=== PATIENT | female | born 1975 | race Caucasian/White ===

== ENCOUNTER 2017-11-27 22:30 | Inpatient (IN) | payer BC ==
[2017-11-28] MEDS ORDERED: NA CHLORIDE 0.9% 1,000 ML IV SCH ×2 (01:00→11:00)
[2017-11-28] MEDS ORDERED: CEFOXITIN SODIUM 2 GM/VIAL ONE (01:11)
[2017-11-28] MEDS ORDERED: NA CHLORIDE 0.9% 100 ML ONE ×2 (01:17→04:48)
[2017-11-28] MEDS: CEFOXITIN SODIUM 1 GM/VIAL IVPB SCH ×2 (01:24→05:27)
[2017-11-28] MEDS ORDERED: CEFOXITIN/SWI 1gm 1 GM/10 ML SYR IV SCH (08:30)
[2017-11-28] MEDS ORDERED: BUPIVACAINE 0.5% PF 10 ML VIAL ONE (09:21)
[2017-11-28] MEDS: Ringers Lactate 1,000 ML IV ONE (09:27)
[2017-11-28] MEDS ORDERED: PROPOFOL 200 MG/20 ML VIAL IV ONE (09:41)
[2017-11-28] MEDS ORDERED: MIDAZOLAM HCL 2 MG/2 ML INJ ONE (09:41)
[2017-11-28] MEDS ORDERED: LIDOCAINE 2% MPF 5 ML VIAL ONE (09:42)
[2017-11-28] MEDS ORDERED: GLYCOPYRROLATE 0.2 MG/ML SYR ONE (09:42)
[2017-11-28] MEDS ORDERED: ROCURONIUM 50 MG/5 ML VIAL IV ONE (09:43)
[2017-11-28] MEDS ORDERED: FENTANYL CITR 250 MCG/5 ML ONE (09:43)
--- NOTE | 2017-11-28 10:40 | P.BOP ---
Preoperative diagnosis: Acute cholecystitis, symptomatic cholelithiasis Postoperative diagnosis: same Primary procedure: Laparoscopic cholecystectomy Estimated blood loss: <10cc Specimen: gb Findings: as above Anesthesia: General Complications: None Transferred to: Recovery Room Condition: Good
[2017-11-28] MEDS ORDERED: ONDANSETRON 4 MG/2 ML VIAL IV PRN (11:00)
[2017-11-28] MEDS ORDERED: MORPHINE 4 MG/ML SYR IV PRN (11:00)
[2017-11-28] MEDS ORDERED: Ringers Lactate 1,000 ML IV ONE (11:12)
[2017-11-28] MEDS: MEPERIDINE HCL 25 MG/0.5 ML ONE ×2 (11:15→11:20)
[2017-11-28] MEDS ORDERED: CEFOXITIN 1 GM in NA CHLORIDE 0.9% 100 ML IVPB SCH (12:00)
[2017-11-28] MEDS: CEFOXITIN/SWI 1gm 1 GM/10 ML SYR IV SCH ×2 (12:00→18:00)
--- NOTE | 2017-11-28 12:36 | HP ---
Date of Admission: 11/27/2017 Diagnoses: Acute cholecystitis, symptomatic cholelithiasis. History Of Present Illness: This is the case of a 42-year-old patient, with at least 3 days' history of epigastric right upper quadrant pain radiating to the back associated with nausea and bloating. The patient has been trying to improve her diet, but did not get better, so she went to [place] [facility] and since the pain was intractable, we were called for transfer to this institution for above diagnoses. The patient denies any dysuria, hematuria, hematochezia, or melena. Denies any recent traveling out of the country. Denies any family member sick at home. Review of Systems: Constitutional: Denies any fevers, chills. Respiratory: Denies any shortness of breath. Gastrointestinal: As above. Genitourinary: Denies any dysuria, hematuria. Past Medical History: None. Allergies: NONE. Social History: She does not smoke. She does not drink alcohol. Family History: Noncontributory. Past Surgical History: . Physical Examination: General: The patient is awake and alert. HEENT: Pupils are equal and reactive, anicteric. Neck: Supple. Chest: Clear. abdomen: epigastric right upper quadrant pain with Amor sign positive. The rest of the abdomen is Soft and depressible. Breasts: Deferred pelvic: Deferred Rectal: Deferred. Extremities: Good capillary refill. Cranial nerves 2 through 12 grossly within normal limits.. Reported ultrasound and CT scan done in [place] shows acute cholecystitis, symptomatic cholelithiasis w ith a pericholecystic fluid and sludge. Laboratory Data: Blood work reviewed including LFTs. Assessment And Plan: This is a 42-year-old patient with symptomatic cholelithiasis, acute cholecysti tis, intractable pain, Amor sign positive. The benefits, alternatives, and risks fully explained t o the patient, laparoscopic possible open cholecystectomy, which include, but not limited to infectio n, bleeding, damage to adjacent structures, anesthesia complication, choledocholithiasis, bile leak, pancreatitis, [place], and even . She also understands this may not relieve any symptoms. She might need more than one surgical intervention. She will sign a consent. PATEL/ANGELA Voice ID: [id number]
[2017-11-28] MEDS: HYDROCODONE/APAP 7.5/325 MG TAB PO PRN ×2 (13:40→17:49)
--- NOTE | 2017-11-28 19:54 | OP ---
Date of Procedure: 11/28/2017 Surgeon: Krishan Varela MD Superintendent Construction: None. Preoperative Diagnoses: Acute cholecystitis, symptomatic cholelithiasis. Postoperative Diagnoses: Acute cholecystitis, symptomatic cholelithiasis. Procedure: Laparoscopic cholecystectomy. Anesthesia: General plus local. Indications: This is a case of a 42-year-old patient, got emergently to the hospital with intractabl e abdominal pain, diagnosed with acute cholecystitis, symptomatic cholelithiasis. Fully explained th e benefits, alternatives, and risks of laparoscopic, possible open cholecystectomy, which include, bu t are not limited to infection, bleeding, damage to adjacent structures anesthesia complication, chol edocholithiasis, bile leak, pancreatitis, [place], and even . She also understands this may not reli elisa any symptoms. She might need more than one surgical intervention. She understood. Signed a con sent. Description Of Procedure: The patient was brought to the operating room, placed in supine position. Anesthesia was done without complication. Abdominal area was prepped and draped in sterile fashion. Marcaine 0.5% injected for local anesthetic, followed by sharp incision of the skin in the infraumb ilical region. Incision was carried down to fascia, which was opened under direct vision. Peritoneu m was encountered, opened under direct vision. Vicryl #1 placed inside the fascia. Parmjit trocar wa s carefully introduced. No bleeding was obtained. I placed 3 more trocars, 5 mm each one of them in the right upper quadrant under direct visualization. This allowed me to visualize the area of the g allbladder, which shows edematous gallbladder wall. Grasper placed in the fundus of the gallbladder, another grasper in the infundibulum. The gallbladder was retracted in the inferolateral fashion exp osing the triangle of Calot and obtaining critical view of safety. Cystic duct and cystic artery wer e clearly isolated free circumferentially, and a connection between those and the gallbladder was kartik amando identified. I proceeded to ligate those by using at least 3 clips proximal, 1 clip distal, liga tion in middle. Same was done with cystic artery. No bile leak. No bleeding. The gallbladder was removed from liver using Bovie cauterizer and removed from abdominal cavity using an EndoCatch throug h the umbilical incision. The area was inspected once again. No bile leak. No bleeding. Gallbladd er fossa was intact. At that moment, I proceeded to remove the trocars under direct vision. Deflate d the pneumoperitoneum, closed the fascia with #1 Vicryl. Irrigated subcutaneous tissue, closed that with her chromic, and skin in a subcuticular fashion with 3-0 chromic and Steri-Strips on top. Spon ge count and instrument counts were correct. The patient tolerated the procedure well. The patient was sent to recovery in stable condition. If the patient tolerates diet today, then she will be able to go home and also if she is able to tolerate pain medications by mouth. Diagnoses: Acute cholecystitis, symptomatic cholelithiasis. Procedure: Laparoscopic cholecystectomy. Disposition: Home. Activity: As tolerated. No heavy lifting. Followup: Follow up in my office in 1 week. Call for appointment [phone]. Keep area dry for 48 ho urs, then may shower. Keep Steri-Strips intact. Medication: Will include Cipro 500 p.o. q.12 and Tylenol No.3 q.4 hours p.r.n. pain. JANAE Voice ID: [id number] Report ID: [id number]
== END 2017-11-28 20:15 | disposition home or self-care (01) | DRG 419 ==
LOC: 2ND 22:30
PROVIDERS: ADMIT Surgery; ATTEND Surgery
PROC: 0FT44ZZ Resection of Gallbladder, Percutaneous Endoscopic Approach (ICD-10-PCS; principal; 2017-11-27)
DX: K80.00 Calculus of gallbladder with acute cholecystitis without obstruction (principal); Z88.2 Allergy status to sulfonamides; Z87.891 Personal history of nicotine dependence
CPT/HCPCS: 88304; J0694; J2175; J2250; J7030

== ENCOUNTER 2017-12-07 07:23 | Emergency (ER) | payer BC ==
[2017-12-07] MEDS ORDERED: ONDANSETRON 4 MG/2 ML VIAL ONE ×2 (07:42→09:30)
[2017-12-07] MEDS ORDERED: NA CHLORIDE 0.9% 1,000 ML ONE (07:42)
[2017-12-07] MEDS ORDERED: MEPERIDINE HCL 25 MG/0.5 ML ONE ×2 (07:42→09:30)
[2017-12-07 07:55] LABS: Absolute Lymphocytes (CBC) 1.4 K/uL (0.7-4.9); Absolute Monocytes 0.6 K/uL (0.1-1.3); Absolute Neutrophil 3.9 K/uL (1.8-8.0); Basophils % 0.7 % (0-1.3); Eosinophils % 1.6 % (0-4.4); Hematocrit 38.3 % (36.0-45.0); Lymphocytes % 22.8 % (15.3-44.8); MCH 28.9 pg (27.0-35.0); MCV 87.1 fL (80-100); MPV 9.7 fL (7.6-11.3); Monocytes % 10.1 % (3.3-12.3)
[2017-12-07 08:13] LABS: Bilirubin Direct 0.1 mg/dL (0-0.2); Bilirubin Total 0.4 mg/dL (0.2-1.0); Potassium 3.3 mmol/L (3.5-5.1); Protein, Total 8.2 g/dL (6.4-8.2)
[2017-12-07 08:25] LABS: Urine Blood NEGATIVE (NEG); Urine Glucose NEGATIVE (NEG); Urine Protein TRACE (NEG); Urine Specific Gravity >1.030 (1.005-1.030); Urine pH 6.5 (5.0-7.0)
[2017-12-07 08:30] LABS: Urine Amorphous Sediment 3+ /HPF (NONE SEEN); Urine Bacteria <20 /HPF (<20); Urine RBC NONE SEEN /HPF (NONE SEEN)
[2017-12-07 08:31] LABS: Urine Culture Reflex Order NOT NEEDED
--- NOTE | 2017-12-07 09:04 | RAD REPORT ---
EXAM DESCRIPTION: CT - Abdomen Pelvis W Contrast - 12/07/2017 8:33 am CLINICAL HISTORY: Abdominal pain with vomiting. Cholecystectomy 1 week ago COMPARISON: none. TECHNIQUE: Computed axial tomography of the abdomen pelvis was obtained. 100 cc Isovue-300 was admin istered intravenously. Oral contrast was not requested which limits evaluation of bowel. All CT scans are performed using dose optimization technique as appropriate and may include automated exposure control or mA/KV adjustment according to patient size. FINDINGS: The gallbladder has been removed. A 3 x 0.5 centimeter fluid collection within the gallbla dder fossa is present. The liver has a diminished attenuation consistent with fatty infiltration. Spleen, pancreas, adrenal and kidneys appear unremarkable. There is no evidence of diverticulitis. The appendix is normal. An adnexal mass is not seen. A puncta te calcification within the left ovary is noted. A small hiatal hernia is present IMPRESSION: Cholecystectomy. A 3 x 0.5 centimeter fluid collection within the gallbladder fossa is n onspecific. Most likely is not significant. If the patient's symptoms do not resolve then a follow-up right upper quadrant ultrasound in a few days would be recommended for re-evaluation
--- NOTE | 2017-12-07 09:53 | ER ---
Nurse's Notes [facility] Name: Talya Davenport Age: 42 yrs Sex: Female : 1975 Arrival Date: 12/07/2017 Time: 07:27 Bed 5 Private MD: Paco Last Diagnosis: Unspecified abdominal pain;Vomiting Presentation: 12/07 07:33 Presenting complaint: Patient states: I had gallbladder surgery a week ago, this tw2 morning i felt like i need to have a BM, but i never had one and my stomach started hurting really bad and now i have been nauseous and throwing up. Transition of care: patient was not received from another setting of care. Onset of symptoms was December 07, 2017. Risk Assessment: Do you want to hurt yourself or someone else? Patient reports no desire to harm self or others. Initial Sepsis Screen: Does the patient meet any 2 criteria? No. Patient's initial sepsis screen is negative. Does the patient have a suspected source of infection? No. Patient's initial sepsis screen is negative. Care prior to arrival: None. 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 tw2 Historical: - Allergies: 07:36 Sulfa (Sulfonamide Antibiotics); tw2 - PSHx: 07:36 ; Tubal ligation; Cholecystectomy; tw2 - Immunization history:: Adult Immunizations up to date. - Social history:: Smoking status: Patient/guardian denies using tobacco. - Ebola Screening: : Patient denies travel to an Ebola-affected area in the 21 days before illness onset. - Family history:: not pertinent. - Hospitalizations: : The patient was recently seen at [facility]. Screenin:37 Abuse screen: Denies threats or abuse. Nutritional screening: No deficits noted. tw2 Tuberculosis screening: No symptoms or risk factors identified. Fall Risk None identified. Assessment: 07:36 General: Appears uncomfortable, Behavior is appropriate for age. Pain: Complains of tw2 pain in abdomen. Neuro: Level of Consciousness is awake, alert, obeys commands, Oriented to person, place, time, situation. Cardiovascular: Denies chest pain, shortness of breath, Heart tones S1 S2 Capillary refill < 3 seconds Patient's skin is warm and dry. Respiratory: Airway is patent Respiratory effort is even, unlabored, Respiratory pattern is regular, symmetrical, Breath sounds are clear bilaterally. GI: Abdomen is flat, non-distended, Bowel sounds present X 4 quads. Abd is soft X 4 quads Reports lower abdominal pain, upper abdominal pain, nausea, vomiting. : No signs and/or symptoms were reported regarding the genitourinary system. EENT: No signs and/or symptoms were reported regarding the EENT system. Derm: No signs and/or symptoms reported regarding the dermatologic system. Musculoskeletal: Range of motion: intact in all extremities. 08:40 Reassessment: Patient appears in no apparent distress at this time. Patient and/or tw2 family updated on plan of care and expected duration. Pain level reassessed. Patient is alert, oriented x 3, equal unlabored respirations, skin warm/dry/pink. 10:09 Reassessment: Patient appears in no apparent distress at this time. Patient and/or tw2 family updated on plan of care and expected duration. Pain level reassessed. Patient is alert, oriented x 3, equal unlabored respirations, skin warm/dry/pink. Patient states feeling better. Patient states symptoms have improved. Vital Signs: 07:34 BP 150 / 96; Pulse 99; Resp 17; Pulse Ox 98% on R/A; Pain 8/10; tw2 07:49 Temp 97.6(TE); hb 08:40 BP 137 / 80; Pulse 72; Resp 18; Pulse Ox 99% on R/A; tw2 09:38 BP 150 / 96; Pulse 65; Resp 17; Pulse Ox 99% on R/A; tw2 ED Course: 07:27 Patient arrived in ED. mr 07:27 Paco Last MD is Private Physician. mr 07:29 Sean López MD is Attending Physician. rn 07:33 Leanna Momin RN is Primary Nurse. tw2 07:34 Triage completed. tw2 07:34 Arm band placed on. tw2 07:34 Bed in low position. Call light in reach. Adult w/ patient. Pulse ox on. NIBP on. tw2 07:35 No provider procedures requiring assistance completed. Inserted saline lock: 20 gauge tw2 in right antecubital area, using aseptic technique. ,using aseptic technique. per DALI Gillis Blood collected. 07:49 Radiology exam delayed due to lab results not completed at this time. (BUN/Creatinine). vr 08:08 Radiology exam delayed due to lab results not completed at this time. (BUN/Creatinine). vr 08:[address] via wheelchair. vr 08:34 CT Abd/Pelvis - W/Contrast In Process Unspecified. EDMS 09:47 EKG done, by lead slot technician. reviewed by Sean López MD. tc 10:10 IV discontinued, intact, bleeding controlled, No redness/swelling at site. Pressure tw2 dressing applied. Administered Medications: 07:45 Drug: Zofran 4 mg Route: IVP; Site: right antecubital; hb 08:15 Follow up: Response: No adverse reaction hb 07:46 Drug: Demerol 25 mg Route: IVP; Site: right antecubital; hb 08:20 Follow up: Response: No adverse reaction hb 07:46 Drug: NS 0.9% 1000 ml Route: IV; Rate: 1000 ml; Site: right antecubital; hb 10:00 Follow up: Response: No adverse reaction; IV Status: Completed infusion; IV Intake: tw2 1000ml 09:29 Drug: Demerol 25 mg Route: IVP; Site: right antecubital; hb 09:52 Follow up: Response: No adverse reaction hb 09:29 Drug: Zofran 4 mg Route: IVP; Site: right antecubital; hb 09:52 Follow up: Response: No adverse reaction hb Intake: 10:00 IV: 1000ml; Total: 1000ml. tw2 Outcome: 09:53 Discharge ordered by . rn 10:09 Discharged to home ambulatory, with family. tw2 10:09 Condition: stable 10:09 Discharge instructions given to patient, family, Instructed on discharge instructions, follow up and referral plans. medication usage, Demonstrated understanding of instructions, follow-up care, medications, Prescriptions given X 1. 10:10 Patient left the ED. tw2 Signatures: Dispatcher [employer] EDOR Tia Aguero Roman, MD MD rn Davis, Victoria vr Callis, Tiffany, dry chain offbearer EKG Elis Lewis RN RN hb Wise, Tara, RN RN tw2 Corrections: (The following items were deleted from the chart) 08:41 08:40 BP 137 / 80; Pulse 118bpm; Resp 18bpm; Pulse Ox 99% RA; tw2 tw2
--- NOTE | 2017-12-07 09:53 | EDPHYS ---
Physician Documentation [facility] Name: Talya Davenport Age: 42 yrs Sex: Female : 1975 Arrival Date: 12/07/2017 Time: 07:27 Bed 5 Private MD: Paco Last ED Physician Sean López HPI: 12/07 07:52 This 42 yrs old Female presents to ER via Wheelchair with complaints of rn Abdominal Pain, Vomiting. 07:52 The patient presents to the emergency department with nausea, vomiting, abdominal pain. rn Onset: The symptoms/episode began/occurred this morning. Possible causes: unknown. The symptoms are aggravated by nothing. The symptoms are alleviated by nothing. Severity of symptoms: At their worst the symptoms were moderate in the emergency department the symptoms have improved. The patient has not experienced similar symptoms in the past. Reports abd pain and vomiting that began today, right sided abd pain, had laparoscopic cholecystectomy 1.5 weeks ago, no complications, having normal bowel movements since then. Reports feels like "gas pain". 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 tw2 Historical: - Allergies: 07:36 Sulfa (Sulfonamide Antibiotics); tw2 - PSHx: 07:36 ; Tubal ligation; Cholecystectomy; tw2 - Immunization history:: Adult Immunizations up to date. - Social history:: Smoking status: Patient/guardian denies using tobacco. - Ebola Screening: : Patient denies travel to an Ebola-affected area in the 21 days before illness onset. - Family history:: not pertinent. - Hospitalizations: : The patient was recently seen at [facility]. ROS: 07:52 Constitutional: Negative for fever, chills, and weight loss, Eyes: Negative for injury, rn pain, redness, and discharge, Neck: Negative for injury, pain, and swelling, Cardiovascular: Negative for chest pain, palpitations, and edema, Respiratory: Negative for shortness of breath, cough, wheezing, and pleuritic chest pain, Abdomen/GI: + abd pain and vomiting Back: Negative for injury and pain, MS/Extremity: Negative for injury and deformity, Skin: Negative for injury, rash, and discoloration, Neuro: Negative for headache, weakness, numbness, tingling, and seizure. Exam: 07:52 Constitutional: This is a well developed, well nourished patient who is awake, alert, rn hunched over and vomiting, holding emesis bag Head/Face: Normocephalic, atraumatic. Eyes: Pupils equal round and reactive to light, extra-ocular motions intact. Cardiovascular: Regular rate and rhythm with a normal S1 and S2. No gallops, murmurs, or rubs. Normal PMI, no JVD. No pulse deficits. Respiratory: Lungs have equal breath sounds bilaterally, clear to auscultation and percussion. No rales, rhonchi or wheezes noted. No increased work of breathing, no retractions or nasal flaring. Abdomen/GI: soft, + right mid abd tenderness, no rebound/guarding, no masses Skin: Warm, dry with normal turgor. Normal color with no rashes, no lesions, and no evidence of cellulitis. Neuro: Awake and alert, GCS 15 Vital Signs: 07:34 BP 150 / 96; Pulse 99; Resp 17; Pulse Ox 98% on R/A; Pain 8/10; tw2 07:49 Temp 97.6(TE); hb 08:40 BP 137 / 80; Pulse 72; Resp 18; Pulse Ox 99% on R/A; tw2 09:38 BP 150 / 96; Pulse 65; Resp 17; Pulse Ox 99% on R/A; tw2 MDM: 07:29 Patient medically screened. rn 09:49 Differential diagnosis: Nonspecific abd pain, gastritis, viral gastroenteritis, rn gastroenteritis, gas, spasm, constipation, bile leak, abscess. Data reviewed: vital signs, nurses notes, lab test result(s), radiologic studies, CT scan, and as a result, I will discharge patient. Counseling: I had a detailed discussion with the patient and/or guardian regarding: the historical points, exam findings, and any diagnostic results supporting the discharge/admit diagnosis, lab results, radiology results, the need for outpatient follow up, to return to the emergency department if symptoms worsen or persist or if there are any questions or concerns that arise at home. Response to treatment: the patient's symptoms have markedly improved after treatment, and as a result, I will discharge patient. Special discussion: Based on the patient's Hx, exam, and Dx evaluation, there is no indication for emergent surgery or inpatient Tx. It is understood by the patient/guardian that if the Sx's persist or worsen they need to return immediately for re-evaluation. I discussed with the patient/guardian in detail that at this point there is no indication for admission to the hospital. It is understood, however, that if the symptoms persist or worsen the patient needs to return immediately for re-evaluation. ED course: Non-specific fluid collection at gallbladder fossa, only 1.5 weeks out, most likely post-op nonspecific fluid collection, normal bloodwork, no other surgical or emergent etiology found for abd pain, possible early enteritis given feels like needs to use bathroom and vomiting, will dc home with zofran prn and return precautions, explained to her early presentation can sometimes hinder diagnosis. . 12/07 07:38 Order name: Basic Metabolic Panel; Complete Time: 08:25 rn 12/07 07:38 Order name: CBC with Diff; Complete Time: 08:25 rn 12/07 07:38 Order name: Creatinine for Radiology; Complete Time: 08:25 rn 12/07 07:38 Order name: Hepatic Function; Complete Time: 08:25 rn 12/07 07:38 Order name: Lipase; Complete Time: 08:25 rn 12/07 07:38 Order name: Urine Microscopic Only; Complete Time: 08:41 rn 12/07 07:38 Order name: CT Abd/Pelvis - W/Contrast; Complete Time: 09:07 rn 12/07 08:21 Order name: Urine Dipstick--Ancillary (enter results); Complete Time: 08:25 bd 12/07 08:21 Order name: Urine --Ancillary (enter results); Complete Time: 08:25 bd 12/07 07:38 Order name: Urine Test (obtain specimen); Complete Time: 08:12 rn 12/07 07:38 Order name: IV Saline Lock; Complete Time: 07:44 rn 12/07 07:38 Order name: Labs collected and sent; Complete Time: 07:43 rn 12/07 07:38 Order name: Urine Dipstick-Ancillary (obtain specimen); Complete Time: 08:12 rn 12/07 09:24 Order name: EKG; Complete Time: 09:24 rn 12/07 09:24 Order name: EKG - Nurse/Tech; Complete Time: 09:51 rn Administered Medications: 07:45 Drug: Zofran 4 mg Route: IVP; Site: right antecubital; hb 08:15 Follow up: Response: No adverse reaction hb 07:46 Drug: Demerol 25 mg Route: IVP; Site: right antecubital; hb 08:20 Follow up: Response: No adverse reaction hb 07:46 Drug: NS 0.9% 1000 ml Route: IV; Rate: 1000 ml; Site: right antecubital; hb 10:00 Follow up: Response: No adverse reaction; IV Status: Completed infusion; IV Intake: tw2 1000ml 09:29 Drug: Demerol 25 mg Route: IVP; Site: right antecubital; hb 09:52 Follow up: Response: No adverse reaction hb 09:29 Drug: Zofran 4 mg Route: IVP; Site: right antecubital; hb 09:52 Follow up: Response: No adverse reaction hb Disposition: 12/07/17 09:53 Discharged to Home. Impression: Unspecified abdominal pain, Vomiting. - Condition is Stable. - Discharge Instructions: Abdominal Pain, Adult, Nausea and Vomiting, Adult. - Prescriptions for Zofran ODT 4 mg Oral tablet,disintegrating - place 1 tablet by TRANSLINGUAL route every 8 hours As needed; 20 tablet. - Medication Reconciliation Form, Thank You Letter, Antibiotic Education, Prescription Opioid Use, Work release form form. - Follow up: Private Physician; When: As needed; Reason: Recheck today's complaints, Re-evaluation by your physician. - Problem is new. - Symptoms have improved. Signatures: Dispatcher [employer] EDMS Sean López MD MD rn Baxter, Heather, RN RN Leanna Momin RN RN tw2 Corrections: (The following items were deleted from the chart) 10:10 09:53 12/07/2017 09:53 Discharged to Home. Impression: Unspecified abdominal pain; tw2 Vomiting. Condition is Stable. Forms are Medication Reconciliation Form, Thank You Letter, Antibiotic Education, Prescription Opioid Use. Follow up: Private Physician; When: As needed; Reason: Recheck today's complaints, Re-evaluation by your physician. Problem is new. Symptoms have improved. rn
--- NOTE | 2017-12-07 18:50 | EKG ---
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
== END 2017-12-07 10:10 | disposition home or self-care (01) ==
LOC: ER 07:23
DX: R11.10 Vomiting, unspecified (principal); Z88.2 Allergy status to sulfonamides
CPT/HCPCS: 36415; 74177; 80048; 80076; 81003; 81015; 81025; 83690; 85025; 93005; 96361; 96374; 96375; 99284; J2175; J2405; J7030; Q9967

== ENCOUNTER 2018-01-23 04:28 | Emergency (ER) | payer BC ==
[2018-01-23] MEDS ORDERED: PROMETHAZINE 25 MG/ML VIAL ONE (04:51)
[2018-01-23] MEDS ORDERED: MAGNE/ALUM HYDROXD 30 ML UCUP ONE (04:51)
[2018-01-23] MEDS ORDERED: NA CHLORIDE 0.9% 500 ML ONE (04:51)
[2018-01-23] MEDS ORDERED: LIDOCAINE VISCOUS 2% SOLN 15 ML UDC ONE (04:52)
[2018-01-23 05:15] LABS: Absolute Lymphocytes (CBC) 0.7 K/uL (0.7-4.9); Absolute Monocytes 0.7 K/uL (0.1-1.3); Absolute Neutrophil 5.6 K/uL (1.8-8.0); Basophils % 0.4 % (0-1.3); Eosinophils % 0.3 % (0-4.4); Hematocrit 35.3 % (36.0-45.0); Lymphocytes % 10.2 % (15.3-44.8); MCH 30.6 pg (27.0-35.0); MCV 87.9 fL (80-100); MPV 9.6 fL (7.6-11.3); Monocytes % 9.2 % (3.3-12.3); RBC Red Blood Cell Count 4.01 M/uL (3.86-4.86)
[2018-01-23 05:35] LABS: Albumin 3.6 g/dL (3.4-5.0); Bilirubin Direct 0.1 mg/dL (0-0.2); Bilirubin Total 0.5 mg/dL (0.2-1.0); Potassium 3.8 mmol/L (3.5-5.1)
[2018-01-23] MEDS ORDERED: ONDANSETRON 4 MG/2 ML VIAL ONE (06:02)
--- NOTE | 2018-01-23 08:06 | RAD REPORT ---
EXAM DESCRIPTION: CT - Abdomen Pelvis W Contrast - 01/23/2018 7:51 am CLINICAL HISTORY: Abdominal pain. Right flank pain with nausea and vomiting. COMPARISON: November 2017 TECHNIQUE: Computed axial tomography of the abdomen and pelvis was obtained. 100 cc Isovue-300 is ad ministered intravenously. Oral contrast was given. All CT scans are performed using dose optimization technique as appropriate and may include automated exposure control or mA/KV adjustment according to patient size. FINDINGS: Mild fatty infiltration liver is present. The gallbladder has been removed. Previously described flui d collection within the gallbladder fossa has resolved Spleen, pancreas, adrenals and kidneys appear unremarkable. The appendix is normal caliber. There is no evidence of diverticulitis A small hiatal hernia is present. The wall of the distal esophagus is thickened. The wall of the ascending colon and portions of the descending and sigmoid colon are mildly thickened . IMPRESSION: Mild thickening of the wall of portions of the colon probably indicating mild colitis. Thickening of the wall of the distal esophagus may indicate an esophagitis
[2018-01-23 08:07] LABS: Urine Bacteria <20 /HPF (<20); Urine Culture Reflex Order NOT NEEDED; Urine RBC <5 /HPF (NONE SEEN)
--- NOTE | 2018-01-23 08:18 | ER ---
Nurse's Notes [facility] Name: Talya Davenport Age: 42 yrs Sex: Female : 1975 Arrival Date: 01/23/2018 Time: 04:29 Bed 18 Private MD: Diagnosis: Esophagitis, unspecified;Left sided colitis without complications Presentation: 01/23 04:37 Presenting complaint: Patient states: Abdominal pain, nausea and vomiting since last ao night around 2100. Patient states that pain is radiating to her right kidney. Transition of care: patient was not received from another setting of care. Onset of symptoms was January 22, 2018 at 21:00. Risk Assessment: Do you want to hurt yourself or someone else? Patient reports no desire to harm self or others. Initial Sepsis Screen: Does the patient meet any 2 criteria? No. Patient's initial sepsis screen is negative. Does the patient have a suspected source of infection? No. Patient's initial sepsis screen is negative. Care prior to arrival: None. 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 - Social history:: Smoking status: Patient/guardian denies using tobacco, Patient/guardian denies using alcohol, street drugs. - Ebola Screening: : Patient negative for fever greater than or equal to 101.5 degrees Fahrenheit, and additional compatible Ebola Virus Disease symptoms Patient denies exposure to infectious person Patient denies travel to an Ebola-affected area in the 21 days before illness onset. - Family history:: not pertinent. - Hospitalizations: : No recent hospitalization is reported. Screenin:42 Abuse screen: Denies threats or abuse. Denies injuries from another. Nutritional ao screening: No deficits noted. Tuberculosis screening: No symptoms or risk factors identified. Fall Risk None identified. Assessment: 04:41 General: Appears in no apparent distress. uncomfortable, Behavior is calm, cooperative, ao appropriate for age. Pain: Complains of pain in abdomen Pain currently is 8 out of 10 on a pain scale. Neuro: Level of Consciousness is awake, alert, obeys commands, Oriented to person, place, time, situation, Appropriate for age Moves all extremities. Full function Speech is normal. Cardiovascular: Denies chest pain, shortness of breath, Capillary refill < 3 seconds Patient's skin is warm and dry. Respiratory: Airway is patent Respiratory effort is even, unlabored, Respiratory pattern is regular, symmetrical. GI: Bowel sounds present X 4 quads. Abd is soft and non tender X 4 quads. : No signs and/or symptoms were reported regarding the genitourinary system. EENT: No signs and/or symptoms were reported regarding the EENT system. Derm: Skin is intact, Skin is pink, warm \T\ dry. normal, Skin temperature is warm. Musculoskeletal: Circulation, motion, and sensation intact. Range of motion:. 05:39 Reassessment: Patient appears in no apparent distress at this time. Patient and/or ao family updated on plan of care and expected duration. Pain level reassessed. Patient is alert, oriented x 3, equal unlabored respirations, skin warm/dry/pink. Waiting on lab results to be review. 07:00 General: Appears in no apparent distress. uncomfortable, Behavior is cooperative. Pain: jl7 Complains of pain in right lower quadrant Quality of pain is described as throbbing. Neuro: Level of Consciousness is awake, alert, obeys commands, Oriented to person, place, time, situation. Cardiovascular: Heart tones S1 S2 present Patient's skin is warm and dry. Respiratory: Airway is patent Respiratory effort is even, unlabored, Respiratory pattern is regular, symmetrical, Breath sounds are clear bilaterally. GI: Bowel sounds present X 4 quads. Abd is soft and non tender X 4 quads. : No signs and/or symptoms were reported regarding the genitourinary system. EENT: No signs and/or symptoms were reported regarding the EENT system. Derm: Skin is pink, warm \T\ dry. Musculoskeletal: Range of motion: intact in all extremities. 08:20 Reassessment: Pt laying in bed with eyes closed, respirations even and unlabored, no jl7 signs of distress noted at this time. Vital Signs: 04:38 BP 122 / 78; Pulse 65; Resp 16; Temp 97.5(O); Pulse Ox 98% on R/A; Weight 77.11 kg; ao Height 5 ft. 6 in. (167.64 cm) (R); Pain 8/10; 05:34 BP 118 / 68; Pulse 74; Resp 16; Pulse Ox 97% on R/A; mt 05:40 BP 128 / 54; Pulse 75; Resp 18; Pulse Ox 100% ; ao 07:00 BP 115 / 82; Pulse 70; Resp 15 S; Pulse Ox 100% on R/A; jl7 08:00 BP 114 / 83; Pulse 70; Resp 16; Pulse Ox 100% ; jl7 09:27 BP 116 / 81; Pulse 70; Resp 16 S; Pulse Ox 100% on R/A; jl7 04:38 Body Mass Index 27.44 (77.11 kg, 167.64 cm) ao ED Course: 04:29 Patient arrived in ED. am2 04:31 Sean López MD is Attending Physician. rn 04:37 Derek Pate RN is Primary Nurse. ao 04:38 Triage completed. ao 04:41 Arm band placed on right wrist. Patient placed in an exam room, on a stretcher, on ao pulse oximetry. 04:42 Patient has correct armband on for positive identification. Pulse ox on. NIBP on. ao 04:59 Inserted saline lock: 20 gauge in right antecubital area, using aseptic technique. mt Blood collected. 06:35 Marisol Foster FNP-C is PHCP. snw 07:00 Urine collected: clean catch specimen. jl7 07:06 Report given to DALI Almaraz. ao 07:20 Sung Nicholson RN is Primary Nurse. jl7 07:50 CT Abd/Pelvis - W/Contrast In Process Unspecified. EDMS 09:29 No provider procedures requiring assistance completed. IV discontinued, intact, jl7 bleeding controlled, No redness/swelling at site. Pressure dressing applied. Administered Medications: 04:50 Drug: Phenergan 25 mg Route: IVP; Site: right antecubital; ao 05:58 Follow up: Response: No adverse reaction ao 04:50 Drug: NS 0.9% 500 ml Route: IV; Rate: bolus; Site: right antecubital; ao 05:59 Follow up: IV Status: Completed infusion; IV Intake: 500ml ao 04:50 Drug: GI Cocktail without - (Maalox Suspension 30 ml, Lidocaine Liquid 2 % 15 ao ml) Route: PO; 05:59 Follow up: Response: No adverse reaction ao 06:04 Drug: Zofran 4 mg Route: IVP; Site: right antecubital; ao 07:08 Follow up: Response: No adverse reaction ao 09:05 Drug: fentaNYL (PF) 50 mcg Route: IM; Site: left deltoid; jl7 09:26 Follow up: Response: Medication administered at discharge. jl7 09:05 Drug: Zofran 4 mg Route: PO; jl7 09:26 Follow up: Response: No adverse reaction jl7 Intake: 05:59 IV: 500ml; Total: 500ml. ao Outcome: 08:17 Discharge ordered by . snw 09:28 Discharged to home ambulatory. jl7 09:28 Condition: stable 09:28 Discharge instructions given to patient, family, Instructed on discharge instructions, follow up and referral plans. medication usage, Demonstrated understanding of instructions, follow-up care, medications, Prescriptions given X 3. 09:29 Patient left the ED. jl7 Signatures: Dispatcher [employer] EDMS Marisol Foster, RESOURCE DEVELOPMENT MANAGER-C RESOURCE DEVELOPMENT MANAGER-Csnw Sean López MD MD rn Ortiz, Alex RN RN Sung Wells RN RN jl7 Amna Morgan Moriah ok Corrections: (The following items were deleted from the chart) 09:29 08:00 No provider procedures requiring assistance completed. jl7 jl7 09:29 08:00 IV discontinued, intact, bleeding controlled, No redness/swelling at site. jl7 Pressure dressing applied, jl7
--- NOTE | 2018-01-23 08:18 | EDPHYS ---
Physician Documentation [facility] Name: Talya Davenport Age: 42 yrs Sex: Female : 1975 Arrival Date: 01/23/2018 Time: 04:29 Bed 18 Private MD: ED Physician Sean López HPI: 01/23 06:10 This 42 yrs old Female presents to ER via Ambulatory with complaints of rn Abdominal Pain, Vomiting. 06:10 The patient presents to the emergency department with nausea, vomiting, diarrhea, rn abdominal pain, of the epigastric area. Onset: The symptoms/episode began/occurred yesterday. Possible causes: unknown. The symptoms are aggravated by nothing. The symptoms are alleviated by nothing. Associated signs and symptoms: Pertinent positives: abdominal pain, diarrhea, nausea, vomiting. Severity of symptoms: At their worst the symptoms were moderate in the emergency department the symptoms are unchanged. The patient has experienced a previous episode. The patient has not recently seen a physician. Reports epigastric abd pain assoc with nausea/vomiting/diarrhea, similar episode recently s/p cholecystectomy, got better, no clear diagnosis, and had neg scope by GI. . 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 - Social history:: Smoking status: Patient/guardian denies using tobacco, Patient/guardian denies using alcohol, street drugs. - Ebola Screening: : Patient negative for fever greater than or equal to 101.5 degrees Fahrenheit, and additional compatible Ebola Virus Disease symptoms Patient denies exposure to infectious person Patient denies travel to an Ebola-affected area in the 21 days before illness onset. - Family history:: not pertinent. - Hospitalizations: : No recent hospitalization is reported. ROS: 06:10 Constitutional: Negative for fever, chills, and weight loss, Eyes: Negative for injury, rn pain, redness, and discharge, Neck: Negative for injury, pain, and swelling, Cardiovascular: Negative for chest pain, palpitations, and edema, Respiratory: Negative for shortness of breath, cough, wheezing, and pleuritic chest pain, Abdomen/GI: Negative for constipation MS/Extremity: Negative for injury and deformity, Skin: Negative for injury, rash, and discoloration, Neuro: Negative for headache, weakness, numbness, tingling, and seizure. Exam: 06:10 Constitutional: This is a well developed, well nourished patient who is awake, alert, rn actively vomiting into emesis bag Head/Face: Normocephalic, atraumatic. Cardiovascular: Regular rate and rhythm with a normal S1 and S2. No gallops, murmurs, or rubs. Normal PMI, no JVD. No pulse deficits. Respiratory: Lungs have equal breath sounds bilaterally, clear to auscultation and percussion. No rales, rhonchi or wheezes noted. No increased work of breathing, no retractions or nasal flaring. Abdomen/GI: soft, mild epigastric and ruq tenderness, no rebound Skin: Warm, dry MS/ Extremity: Pulses equal, no cyanosis. Neurovascular intact. Full, normal range of motion. Equal circumference. Neuro: Awake and alert, GCS 15, oriented to person, place, time, and situation. Cranial nerves II-XII grossly intact. Motor strength 5/5 in all extremities. Sensory grossly intact. Cerebellar exam normal. Normal gait. Vital Signs: 04:38 BP 122 / 78; Pulse 65; Resp 16; Temp 97.5(O); Pulse Ox 98% on R/A; Weight 77.11 kg; ao Height 5 ft. 6 in. (167.64 cm) (R); Pain 8/10; 05:34 BP 118 / 68; Pulse 74; Resp 16; Pulse Ox 97% on R/A; mt 05:40 BP 128 / 54; Pulse 75; Resp 18; Pulse Ox 100% ; ao 07:00 BP 115 / 82; Pulse 70; Resp 15 S; Pulse Ox 100% on R/A; jl7 08:00 BP 114 / 83; Pulse 70; Resp 16; Pulse Ox 100% ; jl7 09:27 BP 116 / 81; Pulse 70; Resp 16 S; Pulse Ox 100% on R/A; jl7 04:38 Body Mass Index 27.44 (77.11 kg, 167.64 cm) ao MDM: 04:31 Patient medically screened. rn 08:18 Data reviewed: vital signs, nurses notes. Data interpreted: Pulse oximetry: on room air snw is 100 %. Interpretation: normal. Counseling: I had a detailed discussion with the patient and/or guardian regarding: the historical points, exam findings, and any diagnostic results supporting the discharge/admit diagnosis, the presence of at least one elevated blood pressure reading (>120/80) during this emergency department visit, lab results, radiology results, the need for outpatient follow up, for definitive care, to return to the emergency department if symptoms worsen or persist or if there are any questions or concerns that arise at home. Special discussion: Based on the patient's Hx, exam, and Dx evaluation, there is no indication for emergent surgery or inpatient Tx. It is understood by the patient/guardian that if the Sx's persist or worsen they need to return immediately for re-evaluation. I have referred the patient to see his PCP for further evaluation of high blood pressure. Based on the history and exam findings, there is no indication for further emergent testing or inpatient evaluation. I discussed with the patient/guardian the need to see the pusher operator for further evaluation of the symptoms. I discussed with the patient/guardian the need to see the primary care provider for further evaluation of the symptoms. 01/23 04:42 Order name: Basic Metabolic Panel; Complete Time: 05:40 rn 01/23 04:42 Order name: CBC with Diff; Complete Time: 05:40 rn 01/23 04:42 Order name: Hepatic Function; Complete Time: 05:40 rn 01/23 04:42 Order name: Lipase; Complete Time: 05:40 rn 01/23 04:42 Order name: Urine Microscopic Only; Complete Time: 08: rn 01/23 07:38 Order name: Urine Dipstick--Ancillary (enter results); Complete Time: 19:12 bd 01/23 05:48 Order name: CT Abd/Pelvis - W/Contrast; Complete Time: 08: rn 01/23 07:38 Order name: Urine --Ancillary (enter results); Complete Time: 19:12 bd 01/23 04:42 Order name: IV Saline Lock; Complete Time: 04:58 rn 01/23 04:42 Order name: Labs collected and sent; Complete Time: 04:59 rn 01/23 04:42 Order name: Urine Dipstick-Ancillary (obtain specimen); Complete Time: 07:20 rn 01/23 06:04 Order name: EKG; Complete Time: 06:04 rn 01/23 06:04 Order name: EKG - Nurse/Tech; Complete Time: 06:16 rn Administered Medications: 04:50 Drug: Phenergan 25 mg Route: IVP; Site: right antecubital; ao 05:58 Follow up: Response: No adverse reaction ao 04:50 Drug: NS 0.9% 500 ml Route: IV; Rate: bolus; Site: right antecubital; ao 05:59 Follow up: IV Status: Completed infusion; IV Intake: 500ml ao 04:50 Drug: GI Cocktail without - (Maalox Suspension 30 ml, Lidocaine Liquid 2 % 15 ao ml) Route: PO; 05:59 Follow up: Response: No adverse reaction ao 06:04 Drug: Zofran 4 mg Route: IVP; Site: right antecubital; ao 07:08 Follow up: Response: No adverse reaction ao 09:05 Drug: fentaNYL (PF) 50 mcg Route: IM; Site: left deltoid; jl7 09:26 Follow up: Response: Medication administered at discharge. jl7 09:05 Drug: Zofran 4 mg Route: PO; jl7 09:26 Follow up: Response: No adverse reaction jl7 Disposition: 19:12 Co-signature as Attending Physician, Sean López MD. rn Disposition: 01/23/18 08:17 Discharged to Home. Impression: Esophagitis, unspecified, Left sided colitis without complications. - Condition is Stable. - Discharge Instructions: Esophagitis, Colitis. - Prescriptions for Bentyl 20 mg Oral Tablet - take 1 tablet by ORAL route every 6 hours As needed; 20 tablet. Cipro 500 mg Oral Tablet - take 1 tablet by ORAL route every 12 hours for 5 days; 10 tablet. Diclofenac Sodium 75 mg Oral Tablet Sustained Release - take 1 tablet by ORAL route 2 times per day; 30 tablet. - Medication Reconciliation Form, Thank You Letter, Antibiotic Education, Prescription Opioid Use form. - Follow up: Private Physician; When: 1 - 2 days; Reason: Recheck today's complaints, Continuance of care, Re-evaluation by your physician. Follow up: Emergency Department; When: As needed; Reason: Worsening of condition. - Problem is an acute exacerbation. - Symptoms have improved. Signatures: Dispatcher [employer] EDMS Marisol Foster, POWDER MIXER-C POWDER MIXER-Csnw Sean López MD MD rn Ortiz, Alex, RN RN ao Leal, Jahala, RN RN jl7 Corrections: (The following items were deleted from the chart) 04:43 04:42 Urine Test ordered. rn rn 09:29 08:17 01/23/2018 08:17 Discharged to Home. Impression: Esophagitis, unspecified; Left jl7 sided colitis without complications. Condition is Stable. Forms are Medication Reconciliation Form, Thank You Letter, Antibiotic Education, Prescription Opioid Use. Follow up: Private Physician; When: 1 - 2 days; Reason: Recheck today's complaints, Continuance of care, Re-evaluation by your physician. Follow up: Emergency Department; When: As needed; Reason: Worsening of condition. Problem is an acute exacerbation. Symptoms have improved. snw
[2018-01-23] MEDS ORDERED: FENTANYL CITR 100 MCG/2 ML ONE (09:09)
[2018-01-23] MEDS ORDERED: ONDANSETRON 4 MG (ODT) TAB ONE ×2 (09:09→09:23)
[2018-01-23 09:48] LABS: Urine Blood TRACE (NEG); Urine Glucose NEGATIVE (NEG); Urine Protein NEGATIVE (NEG); Urine pH 5.5 (5.0-7.0)
--- NOTE | 2018-01-23 17:53 | EKG ---
Test Date: 2018-01-23 Test Time: 06:08:34 Layout Man: KRYSTINA MEASUREMENT RESULTS: Intervals: Rate: 52 ID: [id number] QT: 420 QTc: 390 Cushman: P: ID: [id number] T: 29 INTERPRETIVE STATEMENTS: Atrial fibrillation with slow ventricular response Low voltage QRS Abnormal ECG Compared to ECG 12/07/2017 09:30:31 Low QRS voltage now present Sinus bradycardia no longer present Atrial premature complex(es) no longer present Electronically Signed On 01-23-18 17:50:57 CDT by Feliz Churchill
== END 2018-01-23 09:29 | disposition home or self-care (01) ==
LOC: ER 04:28
DX: K51.50 Left sided colitis without complications (principal); Z88.2 Allergy status to sulfonamides
CPT/HCPCS: 36415; 74177; 80048; 80076; 81003; 81015; 81025; 83690; 85025; 93005; 96361; 96372; 96374; 96375; 99284; J2405; J2550; J3010; Q9967